=== PATIENT | female | born 1940 | race Caucasian/White ===

== ENCOUNTER → 2018-03-03 07:50 | Outpatient (CLI) | payer MEDICARE ==
[2018-03-10 22:43] LABS: IMMUNOGLOBULIN E <2 IU/mL (0-100)
== END | disposition home or self-care (01) ==
LOC: D.RT 07:50
PROVIDERS: Internal Medicine Pulmonary Disease
DX: J44.9 Chronic obstructive pulmonary disease, unspecified (principal)

== ENCOUNTER → 2018-07-01 09:20 | Outpatient (CLI) | payer MEDICARE | END | disposition home or self-care (01) | LOC: D.CT 09:20 | DX: R93.8 Abnormal findings on diagnostic imaging of other specified body structures (principal) ==

== ENCOUNTER → 2019-05-08 08:39 | Outpatient (CLI) | payer MEDICARE, OTHER | END | disposition home or self-care (01) | LOC: D.RT 08:39 | PROVIDERS: ATTEND Internal Medicine Pulmonary Disease | DX: J44.9 Chronic obstructive pulmonary disease, unspecified (principal) ==

== ENCOUNTER → 2020-07-12 13:28 | Outpatient (CLI) | payer MEDICARE, OTHER | END | disposition home or self-care (01) | LOC: D.LAB 13:28 | PROVIDERS: ATTEND Internal Medicine Pulmonary Disease | DX: Z11.59 Encounter for screening for other viral diseases (principal) ==

== ENCOUNTER → 2020-07-16 08:35 | Outpatient (CLI) | payer MEDICARE, OTHER | END | disposition home or self-care (01) | LOC: D.RAD 07-12 13:45 → D.RT 07-12 14:00 | PROVIDERS: ATTEND Internal Medicine Pulmonary Disease | DX: J44.9 Chronic obstructive pulmonary disease, unspecified (principal) ==